=== PATIENT | female | born 1995 | race Caucasian/White ===

== ENCOUNTER 2017-12-11 11:43 | Emergency (ER) | payer OTHER ==
[~2017-12-11] VITALS: Ht 152.4 cm; Wt 43.1 kg
[2017-12-11] MEDS ORDERED: ZITHROMAX500 MG PO (15:15)
[2017-12-11] MEDS ORDERED: FLONASE ALLERG9.9 ML NASAL (15:15)
== END 2017-12-11 20:51 | disposition home or self-care (01) ==
LOC: ER 11:43
DX: J06.9 Acute upper respiratory infection, unspecified (principal); J32.8 Other chronic sinusitis

== ENCOUNTER 2018-04-05 09:59 | Emergency (ER) | payer OTHER ==
[~2018-04-05] VITALS: Ht 154.9 cm; Wt 52.2 kg
[~2018-04-05 09:59] MED LIST: FLONASE ALLERG9.9 ML NASAL; ZITHROMAX500 MG PO
== END 2018-04-05 17:48 | disposition home or self-care (01) ==
LOC: ER 09:59
DX: O23.592 Infection of other part of genital tract in pregnancy, second trimester (principal); Z34.82 Encounter for supervision of other normal pregnancy, second trimester

== ENCOUNTER 2018-06-13 21:29 | Outpatient (CLI) | payer OTHER ==
[2018-06-13] MEDS ORDERED: VALACYCLOVIR500 MG PO (21:39)
[2018-06-13] MEDS ORDERED: PRENATAL FORMU1 EAC1 PO (21:39)
== END 2018-06-14 19:42 | disposition still patient (30) ==
LOC: OBS/DEL 21:29
DX: O47.1 False labor at or after 37 completed weeks of gestation (principal); Z34.03 Encounter for supervision of normal first pregnancy, third trimester

== ENCOUNTER 2018-06-14 19:16 | Inpatient (IN) | payer OTHER ==
[~2018-06-14] VITALS: Ht 154.9 cm; Wt 2.3 kg
[~2018-06-14 19:16] MED LIST changes: +PRENATAL FORMU1 EAC1 PO; +VALACYCLOVIR500 MG PO
[2018-06-17] MEDS ORDERED: ACETAMINOPHEN500 M1 PO (14:40)
[2018-06-17] MEDS ORDERED: DOCUSATE SODIU100 MG PO (14:40)
[2018-06-17] MEDS ORDERED: IBUPROFEN800 MG PO (14:40)
[2018-06-17] MEDS ORDERED: PRENATAL FORMU1 EAC1 PO (14:41)
[2018-06-17] MEDS ORDERED: Ferro-Plex CAPLET PO (14:41)
== END 2018-06-17 14:43 | disposition home or self-care (01) | DRG 788 ==
LOC: OB/GYN → LDR 19:16 → O/R 06-15 16:56 → OB/GYN 06-15 19:38
PROVIDERS: ADMIT Obstetrics & Gynecology
PROC: 4A1HXCZ Monitoring of Products of Conception, Cardiac Rate, External Approach (ICD-10-PCS; 2018-06-14)
PROC: BY4FZZZ Ultrasonography of Third Trimester, Single Fetus (ICD-10-PCS; 2018-06-14)
PROC: 3E033VJ Introduction of Other Hormone into Peripheral Vein, Percutaneous Approach (ICD-10-PCS; 2018-06-15)
PROC: 10D00Z1 Extraction of Products of Conception, Low, Open Approach (ICD-10-PCS; principal; 2018-06-15 15:00)
DX: O61.0 Failed medical induction of labor (principal); O13.3 Gestational [pregnancy-induced] hypertension without significant proteinuria, third trimester; O76 Abnormality in fetal heart rate and rhythm complicating labor and delivery; Z3A.38 38 weeks gestation of pregnancy; Z37.0 Single live birth

== ENCOUNTER 2018-11-26 22:37 | Emergency (ER) | payer OTHER ==
[~2018-11-26] VITALS: Ht 154.9 cm; Wt 49.9 kg
[~2018-11-26 22:37] MED LIST changes: +ACETAMINOPHEN500 M1 PO; +DOCUSATE SODIU100 MG PO; +Ferro-Plex CAPLET PO; +IBUPROFEN800 MG PO
== END 2018-11-27 01:59 | disposition home or self-care (01) ==
LOC: ER 22:37
DX: N75.0 Cyst of Bartholin's gland (principal)

== ENCOUNTER 2020-04-06 14:46 | Emergency (ER) | payer OTHER ==
[~2020-04-06] VITALS: Ht 154.9 cm; Wt 51.7 kg
[2020-04-06] MEDS ORDERED: TUSNEL LIQUID178 ML PO (17:27)
[2020-04-06] MEDS ORDERED: CLARITIN10 MG PO (17:27)
[2020-04-06] MEDS ORDERED: ZITHROMAX500 MG PO (17:27)
== END 2020-04-06 18:14 | disposition home or self-care (01) ==
LOC: ER 14:46
DX: J06.9 Acute upper respiratory infection, unspecified (principal); Z20.828 Contact with and (suspected) exposure to other viral communicable diseases

== ENCOUNTER 2021-06-21 06:24 | Day surgery (SDC) | payer OTHER ==
[~2021-06-21 06:24] MED LIST changes: +CLARITIN10 MG PO; +TUSNEL LIQUID178 ML PO
== END 2021-06-21 16:45 | disposition home or self-care (01) ==
LOC: CIR.AMB 06:24
PROVIDERS: ATTEND Obstetrics & Gynecology
DX: O02.1 Missed abortion (principal)

== ENCOUNTER → 2022-09-15 | Day surgery (SDC) | payer OTHER ==
--- NOTE | 2022-09-14 20:03 | NUR ---
SE RECIBE PTE ALERTA Y ORIENTADA X3 LA CUAL REFIERE TENER DOLOR PELVICO EN [place]. PTE EMBARAZADA DE 8 SEMANAS.
--- NOTE | 2022-09-14 21:16 | NUR ---
SE EDUCA A PTE SOBRE TX MEDICO ESTA REFIERE ENTENDER, SE ELDER MUESTRAS DE LABORATORIO UTILIZANDO MEDIDAS ASEPTICAS. SE NOTIFICA ESTUDIO DE SONOGRAFIA PENDIENTE.
[~2022-09-15] VITALS: Ht 157.5 cm; Wt 56.7 kg
[~2022-09-15] MED LIST changes: +PRENA1 TRUE CO1 EACH PO
== END | disposition home or self-care (01) ==
LOC: ER 09-14 19:39 → SEC-K 07:19 → ER 07:19 → O/R 07:19 → CIR.AMB 07:19 → EDSTATUS 12:30 → SEC-K 14:08 → O/R 14:08
PROVIDERS: ATTEND General Practice
DX: O02.1 Missed abortion (principal); O72.2 Delayed and secondary postpartum hemorrhage; Z20.822 Contact with and (suspected) exposure to COVID-19

== ENCOUNTER 2023-06-25 19:27 | Emergency (ER) | payer OTHER ==
[~2023-06-25] VITALS: Ht 154.9 cm; Wt 63.5 kg
[2023-06-25] MEDS ORDERED: ONDANSETRON HCL 2 MG/ML VIAL IV STA (20:18)
[2023-06-25] MEDS ORDERED: 0.9 % SODIUM CHLORIDE 1,000 ML IV STA (20:18)
[2023-06-25 21:11] LABS: HEMATOCRIT 33.8 % (36.0-45.00); HEMOGLOBIN 11.3 g/dL (12.0-15.00); MEAN CELL VOLUME 75.7 fL (80.00-100.00); MEAN CORPUSCULAR HEMOGLOBIN 25.2 pg (27.00-32.0); MEAN CORPUSCULAR HGB CONC 33.3 g/dl (32.0-36.0); PLATELET COUNT 166 K/uL (150-450); RED BLOOD COUNT 4.46 M/uL (4.00-6.00); RED CELL DISTRIBUTION WIDTH 18.2 % (11.5-14.5)
[2023-06-25 21:18] LABS: URINE APPEARANCE Cloudy; URINE BILIRRUBIN Negative (NEGATIVE); URINE BLOOD Negative; URINE COLOR Yellow; URINE GLUCOSE Negative (NEGATIVE); URINE LEUKOCYTE Trace; URINE NITRATE Negative; URINE PROTEIN Negative (NEGATIVE)
[2023-06-25 21:21] LABS: URINE BACTERIA 2057.4 uL (0.0-1933); URINE EPITHELIAL CELLS 40.5 uL (0.0-38.8); URINE RBC 3.4 uL (0.0-20.8); URINE WBC 37.7 uL (0.0-23.2)
[2023-06-25 21:50] LABS: CALCIUM 8.9 mg/dL (8.5-10.1); CREATININE SERUM 0.54 mg/dL (0.55-1.02); GFR 136.47; POTASSIUM 3.48 mEq/L (3.5-5.1)
[2023-06-26] MEDS ORDERED: INTESTINEX680 M1 PO (02:49)
== END 2023-06-26 03:00 ==
LOC: ER 19:27
PROVIDERS: Emergency Medicine
DX: O26.892 Other specified pregnancy related conditions, second trimester (principal); K52.89 Other specified noninfective gastroenteritis and colitis; Z3A.20 20 weeks gestation of pregnancy